=== PATIENT | male | born 1995 | race Caucasian/White ===

== ENCOUNTER → 2017-08-17 | Outpatient (CLI) | payer OTHER ==
[~2017-08-17] MED LIST: CYSTO-CONRAY II 17.2% 250ML VIAL (Q9958) As Ordered; LIDOCAINE 2% JELLY 30 ML As Ordered
== END ==
LOC: M RADPRO 14:10
DX: N32.89 Other specified disorders of bladder (principal); R31.9 Hematuria, unspecified
CPT/HCPCS: 51600

== ENCOUNTER 2017-09-14 15:11 | Emergency (ER) | payer OTHER ==
[2017-09-14 18:13] LABS: BASO # 0.1 10^3/uL (0.0-0.2); BASO % 0.7 % (0.0-1.0); EOS # 0.1 10^3/uL (0.0-0.50); EOS % 1.8 % (0.0-3.0); HEMATOCRIT 43.5 % (42.0-52.0); HEMOGLOBIN 14.6 g/dl (13.5-17.5); IMMATURE GRANULOCYTE % 0.1 % (0-3.0); LYMPH # 2.3 10^3/uL (1.5-6.5); LYMPH % 34.4 % (24.0-44.0); MEAN CORPUSCULAR HEMOGLOBIN 27.9 pg (27.0-33.0); MEAN CORPUSCULAR HGB CONC 33.6 g/dl (32.0-36.5); MEAN CORPUSCULAR VOLUME 83.2 fl (80.0-96.0); MONO # 0.4 10^3/uL (0.0-0.8); MONO % 6.5 % (0.0-5.0); NEUTROPHILS # 3.8 10^3/uL (1.8-7.7); NEUTROPHILS % 56.5 % (36.0-66.0); PLATELET COUNT, AUTOMATED 245 10^3/uL (150-450); RED BLOOD COUNT 5.23 10^6/uL (4.30-6.10); RED CELL DISTRIBUTION WIDTH 12.6 % (11.5-14.5); WHITE BLOOD COUNT 6.8 10^3/uL (4.0-10.0)
[2017-09-14 18:19] LABS: KETONE, URINE AUTO RFX NEGATIVE (NEGATIVE); LEUKOCYTE ESTERASE UR AUTO RFX NEGATIVE (NEGATIVE); MUCUS, URINE RFX SMALL (NEGATIVE); NITRITE, URINE AUTO RFX NEGATIVE (NEGATIVE); RBC, URINE AUTO RFX 22 /HPF (0-3); SPECIFIC GRAVITY UR AUTO RFX 1.024 (1.002-1.035); SQUAM EPITHELIAL CELL UR AURFX 0 /HPF (0-6); WBC, URINE AUTO RFX 2 /HPF (0-3)
[2017-09-14] MEDS: NS 1,000 ML IV (18:21)
[2017-09-14] MEDS: ONDANSETRON 4MG/2ML VIAL (J2405) IV (18:21)
[2017-09-14] MEDS: MORPHINE 4 MG/ML 1ML VIAL/SYRINGE (J2270) IV (18:21)
[2017-09-14 18:44] LABS: ALBUMIN 4.2 GM/DL (3.2-5.2); ALBUMIN/GLOBULIN RATIO 1.11 (1.00-1.93); ALKALINE PHOSPHATASE 93 U/L (45-117); ALT/SGPT 27 U/L (12-78); ANION GAP 5 MEQ/L (8-16); AST/SGOT 18 U/L (7-37); BILIRUBIN,DIRECT 0.2 MG/DL (0.0-0.2); BILIRUBIN,TOTAL 0.6 MG/DL (0.2-1.0); BLOOD UREA NITROGEN 11 MG/DL (7-18); CALCIUM LEVEL 9.3 MG/DL (8.5-10.1); CARBON DIOXIDE LEVEL 28 MEQ/L (21-32); CHLORIDE LEVEL 108 MEQ/L (98-107); CREATININE FOR GFR 1.09 MG/DL (0.70-1.30); GLOMERULAR FILTRATION RATE > 60.0 (>60); GLUCOSE, FASTING 87 MG/DL (70-100); POTASSIUM SERUM 3.7 MEQ/L (3.5-5.1); SODIUM LEVEL 141 MEQ/L (136-145)
[2017-09-14] MEDS ORDERED: ISOVUE-370 76% 100ML VIAL (Q9967) As Ordered (18:51)
== END 2017-09-14 21:59 | disposition home or self-care (01) ==
LOC: M ED 15:11
DX: R10.31 Right lower quadrant pain (principal); Z98.890 Other specified postprocedural states; Z88.0 Allergy status to penicillin; F17.210 Nicotine dependence, cigarettes, uncomplicated
CPT/HCPCS: J2270

== ENCOUNTER → 2017-12-22 | Outpatient (CLI) | payer OTHER | LOC: M PAIN 11:00 | DX: G57.91 Unspecified mononeuropathy of right lower limb (principal); R10.30 Lower abdominal pain, unspecified; F17.200 Nicotine dependence, unspecified, uncomplicated; Z88.0 Allergy status to penicillin | CPT/HCPCS: G0463 ==

== ENCOUNTER → 2018-01-28 | Outpatient (CLI) | payer OTHER ==
[~2018-01-28] MED LIST changes: +BUPIVACAINE HCL 0.25% 30 ML VIAL As Ordered; -CYSTO-CONRAY II 17.2% 250ML VIAL (Q9958) As Ordered; +ISOVUE-M 300 61% 15ML VIAL (Q9967) As Ordered; +LIDOCAINE 1% SDV INJ 30 ML VIAL As Ordered; -LIDOCAINE 2% JELLY 30 ML As Ordered; +TRIAMCINOLONE ACETONIDE SUSP 40 MG/ML VIAL (J3301) As Ordered; +diazePAM 5 MG TAB As Ordered
== END ==
LOC: M PAIN 13:00
DX: G57.91 Unspecified mononeuropathy of right lower limb (principal); F17.210 Nicotine dependence, cigarettes, uncomplicated; Z88.0 Allergy status to penicillin
CPT/HCPCS: J3301

== ENCOUNTER → 2018-02-18 | Outpatient (CLI) | payer OTHER | LOC: M PAIN 14:15 | DX: G57.91 Unspecified mononeuropathy of right lower limb (principal); M25.551 Pain in right hip; F17.210 Nicotine dependence, cigarettes, uncomplicated; Z79.899 Other long term (current) drug therapy; Z88.0 Allergy status to penicillin | CPT/HCPCS: G0463 ==

== ENCOUNTER 2018-02-19 13:08 | Emergency (ER) | payer OTHER ==
[2018-02-19] MEDS: MORPHINE 4 MG/ML 1ML VIAL/SYRINGE (J2270) IV (15:14)
[2018-02-19] MEDS: NS 1,000 ML IV (15:15)
[2018-02-19 15:21] LABS: BASO % 0.6 % (0.0-1.0); EOS # 0.1 10^3/uL (0.0-0.50); EOS % 1.1 % (0.0-3.0); HEMATOCRIT 43.7 % (42.0-52.0); IMMATURE GRANULOCYTE % 0.2 % (0-3.0); LYMPH % 37.3 % (24.0-44.0); MEAN CORPUSCULAR HGB CONC 34.3 g/dl (32.0-36.5); MEAN CORPUSCULAR VOLUME 84.5 fl (80.0-96.0); MONO # 0.3 10^3/uL (0.0-0.8); MONO % 6.3 % (0.0-5.0); NEUTROPHILS # 2.9 10^3/uL (1.8-7.7); NEUTROPHILS % 54.5 % (36.0-66.0); PLATELET COUNT, AUTOMATED 230 10^3/uL (150-450); RED BLOOD COUNT 5.17 10^6/uL (4.30-6.10); RED CELL DISTRIBUTION WIDTH 12.9 % (11.5-14.5); WHITE BLOOD COUNT 5.3 10^3/uL (4.0-10.0)
[2018-02-19 15:43] LABS: ALBUMIN 4.3 GM/DL (3.2-5.2); ALBUMIN/GLOBULIN RATIO 1.39 (1.00-1.93); ALKALINE PHOSPHATASE 58 U/L (45-117); ALT/SGPT 33 U/L (12-78); AMYLASE 80 U/L (25-115); ANION GAP 6 MEQ/L (8-16); AST/SGOT 20 U/L (7-37); BILIRUBIN,DIRECT 0.2 MG/DL (0.0-0.2); BLOOD UREA NITROGEN 15 MG/DL (7-18); CALCIUM LEVEL 9.4 MG/DL (8.5-10.1); CARBON DIOXIDE LEVEL 30 MEQ/L (21-32); CHLORIDE LEVEL 105 MEQ/L (98-107); CREATININE FOR GFR 1.07 MG/DL (0.70-1.30); GLOMERULAR FILTRATION RATE > 60.0 (>60); GLUCOSE, FASTING 88 MG/DL (70-100); LIPASE 136 U/L (73-393); POTASSIUM SERUM 4.2 MEQ/L (3.5-5.1); SODIUM LEVEL 141 MEQ/L (136-145); TOTAL PROTEIN 7.4 GM/DL (6.4-8.2)
[2018-02-19 15:52] LABS: LACTIC ACID SEPSIS PROTOCOL 0.8 MMOL/L (0.4-2.0)
[2018-02-19 16:56] LABS: AMORPHOUS SEDIMENT RFX MODERATE (NEGATIVE); KETONE, URINE AUTO RFX NEGATIVE (NEGATIVE); LEUKOCYTE ESTERASE UR AUTO RFX NEGATIVE (NEGATIVE); MUCUS, URINE RFX SMALL (NEGATIVE); NITRITE, URINE AUTO RFX NEGATIVE (NEGATIVE); RBC, URINE AUTO RFX 1 /HPF (0-3); SQUAM EPITHELIAL CELL UR AURFX 0 /HPF (0-6); WBC, URINE AUTO RFX 0 /HPF (0-3)
== END 2018-02-19 17:18 | disposition home or self-care (01) ==
LOC: M ED 13:08
DX: R10.31 Right lower quadrant pain (principal); K40.30 Unilateral inguinal hernia, with obstruction, without gangrene, not specified as recurrent; F17.200 Nicotine dependence, unspecified, uncomplicated; Z88.0 Allergy status to penicillin; Z79.899 Other long term (current) drug therapy
CPT/HCPCS: J2270

== ENCOUNTER → 2018-03-04 | Outpatient (CLI) | payer OTHER | LOC: M RAD 17:26 | DX: M25.551 Pain in right hip (principal) | CPT/HCPCS: 73721 ==

== ENCOUNTER → 2018-03-08 | Outpatient (CLI) | payer OTHER | LOC: M PAIN 15:45 | DX: G57.91 Unspecified mononeuropathy of right lower limb (principal); F17.210 Nicotine dependence, cigarettes, uncomplicated; Z88.0 Allergy status to penicillin; Z98.890 Other specified postprocedural states | CPT/HCPCS: G0463 ==

== ENCOUNTER → 2018-03-25 | Outpatient (CLI) | payer OTHER | LOC: M PAIN 15:15 | DX: G57.91 Unspecified mononeuropathy of right lower limb (principal); F17.210 Nicotine dependence, cigarettes, uncomplicated; Z79.899 Other long term (current) drug therapy; Z88.0 Allergy status to penicillin; Z98.890 Other specified postprocedural states | CPT/HCPCS: G0463 ==

== ENCOUNTER → 2018-07-05 | Outpatient (CLI) | payer OTHER ==
[~2018-07-05] MED LIST changes: -BUPIVACAINE HCL 0.25% 30 ML VIAL As Ordered; +GABA-843; -ISOVUE-M 300 61% 15ML VIAL (Q9967) As Ordered; -LIDOCAINE 1% SDV INJ 30 ML VIAL As Ordered; +NORCOTAB PO; -TRIAMCINOLONE ACETONIDE SUSP 40 MG/ML VIAL (J3301) As Ordered; -diazePAM 5 MG TAB As Ordered
--- NOTE | 2018-07-20 03:56 | ECWPNPC ---
PATIENT NAME: ROBERTO MCDONALD : 1995 GENDER: MALE VISIT DATE: 07/05/2018 DISCHARGE DATE: 07/05/18 1604 VISIT LOCKED DATE TIME: PHYSICIAN: CM GARCIA MD RESOURCE: CM GARCIA MD DISCLAIMER : THIS IS A VISIT SUMMARY EXTRACTED FROM THE [employer] CHART. IT IS NOT A COPY OF THE [employer] PROGRESS NOTE. KRYSTIAN
== END ==
LOC: M PAIN 14:15
PROVIDERS: ATTEND Anesthesiology
DX: G57.91 Unspecified mononeuropathy of right lower limb (principal); F17.210 Nicotine dependence, cigarettes, uncomplicated; Z79.899 Other long term (current) drug therapy; Z88.0 Allergy status to penicillin

== ENCOUNTER → 2018-08-31 | Outpatient (CLI) | payer OTHER ==
[~2018-08-31] MED LIST changes: +HYDR-3715 PO; +IBUP-1022 PO; -NORCOTAB PO
--- NOTE | 2018-09-12 23:31 | ECWPNPC ---
PATIENT NAME: ROBERTO MCDONALD : 1995 GENDER: MALE VISIT DATE: 08/31/2018 DISCHARGE DATE: 08/31/18 1505 VISIT LOCKED DATE TIME: PHYSICIAN: CM GARCIA MD RESOURCE: CM GARCIA MD REASON FOR APPOINTMENT 1. ABDOMINAL PAIN HISTORY OF PRESENT ILLNESS HISTORY OF PRESENT ILLNESS: PAIN THE PATIENT DESCRIBES THE PAIN... 23 YEAR OLD MALE PATIENT WITH A HISTORY OF CHRONIC ABDOMINAL PAIN. THE PATIENT DESCRIBES THE PAIN SHARP, STABBING, SHOOTING, AND CONTINUOUS WITH A PAIN SCORE OF 1-8/10 DEPENDING ON PHYSICAL ACTIVITY. THE PATIENT SAYS THE PAIN IS ON THE RIGHT SIDE OF HIS ABDOMEN. THE PATIENT HAS A HISTORY OF A RIGHT HERNIA REPAIR IN JULY 2017. THE PATIENT SAYS HE WAS USING GABAPENTIN AFTER THE PROCEDURE AND IT HELPED MANAGE HIS PAIN. THE PATIENT SAYS HIS RECENTLY STARTED WORKING AND DOING MORE PHYSICAL ACTIVITY, SO HIS PAIN HAS INCREASED. PATIENT DENIES UNEXPLAINABLE WEIGHT LOSS, FEVER, CHILLS, NEW CHANGES ON HIS URINARY OR BOWEL CONTROL. FALL RISK SCREENING: SCREENING :NO FALLS REPORTED IN THE LAST YEAR CURRENT MEDICATIONS TAKING GABAPENTIN 300 MG CAPSULE 1 CAPSULE ORALLY FOR PAIN BEFORE BEDTIME NOT-TAKING IBUPROFEN 800 MG TABLET 1 TABLET WITH FOOD OR MILK NEEDED ORALLY FOR PAIN EVERY 6 HOURS NEEDED MDD2 NOT-TAKING ACETAMINOPHEN 500 MG TABLET 1 TO 2 TABLET NEEDED ORALLY FOR PAIN EVERY 6 HRS MDD6 MEDICATION LIST REVIEWED AND RECONCILED WITH THE PATIENT PAST MEDICAL HISTORY RIGHT GROIN PAIN INGUINAL HERNIA LEFT SIDE ALLERGIES PENICILLIN (FOR ALLERGIES USE ONLY): UNKNOWN - ALLERGY SURGICAL HISTORY HERNIA REPAIR 07/2017 SURGERY R/T PERFORATED BLADDER 2018 LEFT INGUINAL HERNIA REPAIR 07/22/18 FAMILY HISTORY FATHER: ALIVE MOTHER: ALIVE 1 BROTHER(S) , 1 SISTER(S) - HEALTHY. SOCIAL HISTORY GENERAL: TOBACCO USE ARE YOU A:CURRENT EVERY DAY SMOKER VAPORYES EDUCATION LEVEL OF EDUCATION:FINISHED HIGH SCHOOL DIET: REGULAR. LANGUAGE LANGUAGES SPOKEN:THAI DOMESTIC VIOLENCE DO YOU FEEL SAFE IN YOUR ENVIRONMENT?YES RECREATIONAL DRUG USE DRUG USE?NO LEARNING BARRIERS / SPECIAL NEEDS CHANGE FROM LAST VISIT?NO BARRIERS TO LEARNING?NO HEARING IMPAIRED?NO VISION IMPAIRED?NO COGNITIVELY IMPAIRED?NO READINESS TO LEARN?YES LEARNING PREFERENCES?YES :DEMONSTRATION/VERBAL INSTRUCTION LEARNING CAPABILITIES PRESENT?YES EMOTIONAL BARRIERS?NO SPECIAL DEVICES?NO PAINT SPRAY INSPECTOR NEEDED?NO PAIN CLINIC PFS, CLERGY, PUBLIC HEALTH REFERRALS PFS REFERRAL NEEDED?NO CLERGY REFERRAL NEEDED?NO PUBLIC HEALTH REFERRAL NEEDED?NO WAS THE PROVIDER NOTIFIED OF ANY PERTINENT INFO? N/A HAS THE PATIENT BEEN EDUCATED REGARDING HIS/HER PLAN OF CARE?YES HAS THE PATIENT BEEN EDUCATED REGARDING PAIN, THE RISK FOR PAIN, THE IMPORTANCE OF EFFECTIVE PAIN MANAGEMENT, AND THE PAIN ASSESSMENT PROCESS?YES LATEX QUESTIONNAIRE LATEX ALLERGY : HAVE YOU EVER DEVELOPED ANY TYPE OF REACTION AFTER HANDLING LATEX PRODUCTS SUCH RUBBER GLOVES, CONDOMS, DIAPHRAGMS, BALLOONS, SOCKS, OR UNDERWEAR?NO LATEX ALLERGY : HAVE YOU EVER DEVELOPED ANY TYPE OF REACTION DURING OR AFTER DENTAL APPOINTMENT, VAGINAL/RECTAL EXAMINATION, SURGICAL PROCEDURE, OR ANY OTHER EXPOSURE?NO LATEX RISK : HAVE YOU EVER HAD ANY DIFFICULTY BREATHING OR HIVES AFTER EATING OR HANDLING ANY FRUITS, OR VEGETABLES; SUCH KIWI, BANANAS, STONE FRUITS, OR CHESTNUTSNO LATEX RISK : DO YOU HAVE A PREVIOUS PERSONAL HISTORY OF MORE THAN NINE SURGERIES, SPINA BIFIDA, OR REPEATED CATHERTIZATIONS? NO LATEX RISK : ARE YOU FREQUENTLY EXPOSED TO LATEX PRODUCTS IN YOUR OCCUPATION?NO DATE ASKED : 08/31/2018 CAFFEINE CAFFEINE USE?YES ONE MONSTER/DAY ADVANCE DIRECTIVE ADVANCE DIRECTIVE DISCUSSED WITH PATIENT:YES CHACE /UNSURE IF PAPERWORK DONE JEHOVAH'S WITNESS [id number] NONE MARITAL STATUS: . ALCOHOL SCREENING DID YOU HAVE A DRINK CONTAINING ALCOHOL IN THE PAST YEAR?NO POINTS0 INTERPRETATIONNEGATIVE OCCUPATION: [employer]. 08/31/18. HOSPITALIZATION/MAJOR DIAGNOSTIC PROCEDURE SURGERY COMPLICATED BY BLADDER PERFORATION 2018 HERNIA REPAIR 2018 REVIEW OF SYSTEMS REVIEWED BY: PROVIDER: CM GARCIA MD . CONSTITUTIONAL: ANY CHANGE IN YOUR MEDICAL CONDITION? NO . CHILLS NO . FEVER NO . INFECTION: DO YOU HAVE NEW INFECTIONS? NO . DO YOU HAVE HISTORY OF MRSA? NO . MUSCULOSKELETAL: ANY NEW PATTERNS OF PAIN OR NUMBNESS? NO . GASTROENTEROLOGY: ANY NEW CHANGE IN BOWEL CONTROL? NO . GENITOURINARY: ANY NEW CHANGE IN BLADDER CONTROL? NO . IS THERE A CHANCE YOU COULD BE ? NO . HEMATOLOGY/LYMPH: DO YOU TAKE ANY BLOOD THINNERS? (FOR EXAMPLE- COUMADIN, PLAVIX, AGGRENOX, PLATEL, PRADAXA, OR XARELTO) NO . WHEN WAS YOUR LAST DOSE? DATE: TIME: . NEUROLOGY: HAVE YOU FALLEN IN THE PAST 12 MONTHS? NO . ANY NEW EXTREMITY NUMBNESS OR WEAKNESS? NO . CARDIOLOGY: DO YOU HAVE A PACEMAKER OR DEFIBRILLATOR? NO . RESPIRATORY: HAVE YOU BEEN SICK IN THE PAST WEEK? NO . FEVER NO . FLU LIKE SYMPTOMS? NO . COUGH NO . INTEGUMENTARY: DO YOU HAVE ANY RASHES OR OPEN SORES? NO . ALLERGIC/IMMUNO: ARE YOU ALLERGIC TO IV DYE? NO . ANY NEW ALLERGIES? NO . PSYCHIATRIC: DO YOU HAVE THOUGHTS OF HURTING YOURSELF OR SOMEONE ELSE? NO . ARE YOU ABUSED, NEGLECTED, OR IN AN UNSAFE ENVIRONMENT? NO . ENDOCRINOLOGY: ARE YOU DIABETIC? NO . OTHER: DO YOU NEED ANY PRESCRIPTIONS? NO . IF YES, PLEASE LIST: ____ . ANY NEW PROBLEMS WITH YOUR MEDICATIONS? NO . WHEN DID YOU LAST EAT? ____ . WHEN DID YOU LAST DRINK? ____ . WHAT DID YOU LAST DRINK? ____ . NAME OF PERSON DRIVING YOU HOME? ____ . DO YOU HAVE ANY OTHER QUESTIONS OR CONCERNS NO . VITAL SIGNS WT 155 LBS, HT 72 IN, BMI 21.02 INDEX, BP 142/86 MM HG, HR 60 /MIN, RR 16 /MIN, TEMP 98.3 F, OXYGEN SAT % 99%, REVIEWED BY: SEKOU. EXAMINATION GENERAL EXAMINATION: PATIENT IS ALERT O X 3 AND COOPERATIVE. TENDERNESS ON THE SURGICAL SCAR OVER THE RIGHT ABDOMINAL AREA. TENDERNESS WITH PALPATION OVER THE RIGHT ABDOMINAL AREA, BUT NO REBOUND TENDERNESS. 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 MCDONALD'S PAIN MANAGEMENT CASE. DUE TO THE SCAR NEUROMA, I WOULD LIKE TO MOVE FORWARD WITH A SCAR NEUROMA INJECTION OVER THE RIGHT ABDOMINAL AREA. WE DISCUSSED THE BENEFITS, RISKS, AND ALTERNATIVES OF THE INJECTION AND THE PATIENT WOULD LIKE TO PROCEED. I WILL CONSIDER USING ULTRASOUND IN THE FUTURE DEPENDING ON THE RESULTS OF THE INJECTION. I WILL REFILL THE PATIENT'S GABAPENTIN AND INCREASE IT SLOWLY. I WOULD LIKE TO START THE PATIENT ON FLECTOR PATCH. I WILL ALSO REQUEST AN INTERFERENTIAL TENS UNIT. THE PATIENT WILL FOLLOW UP AFTER THE INJECTION. INSTRUCTIONS WERE GIVEN, QUESTIONS WERE ANSWERED, PATIENT REPORTS UNDERSTANDING AND AGREES WITH THE PLAN. I, LETHA BOWMAN, DOCUMENTED THE ABOVE INFORMATION ACTING A SCRIBE FOR DR. GARCIA. I HAVE REVIEWED THE ABOVE DOCUMENT, WRITTEN BY LETHA MAGALLANES AND I VERIFY THAT IT IS ACCURATE. . ILIOINGUINAL NEURALGIA OF RIGHT SIDE REFILL GABAPENTIN CAPSULE, 300 MG, 1 CAPSULE, ORALLY FOR PAIN, THREE TIMES DAILY, 30 DAYS, 90, REFILLS 1 REFILL IBUPROFEN TABLET, 800 MG, 1 TABLET WITH FOOD OR MILK NEEDED, ORALLY FOR PAIN, EVERY 6 HOURS NEEDED MDD3, 30 DAY(S), 75, REFILLS 1 OTHERS REFILL ACETAMINOPHEN TABLET, 500 MG, 1 TO 2 TABLET NEEDED, ORALLY FOR PAIN, EVERY 6 HRS MDD6, 30 DAYS, 150, REFILLS 1 START FLECTOR PATCH, 1.3 %, 1 PATCH TO SKIN, TRANSDERMAL, DAILY ( PUT IN AM AND REMOVE IN PM), 30 DAY(S), 30, REFILLS 1 PREVENTIVE MEDICINE PAIN CLINIC TEACHING: MEDICATIONS INFORMATION FOR FLECTOR PATCH AND GABAPENTIN PRINTED AND REVIEWED WITH PT.. PROCEDURE CODES FA211 ESTABILISHED PATIENT [facility] CHARGE [id number] CURRENT MEDS W/DOSAGES DOCUMENTED G8730 PAIN ASSESS POS TOOL F/U PLAN DOC DISPOSITION & COMMUNICATION FOLLOW UP 3 WEEKS ELECTRONICALLY SIGNED BY CM GARCIA MD, ON 09/12/2018 AT 07:37 PM EDT DISCLAIMER : THIS IS A VISIT SUMMARY EXTRACTED FROM THE [employer] CHART. IT IS NOT A COPY OF THE [employer] PROGRESS NOTE. KRYSTIAN
== END ==
LOC: M PAIN 12:15
PROVIDERS: ATTEND Anesthesiology
DX: D36.10 Benign neoplasm of peripheral nerves and autonomic nervous system, unspecified (principal); G57.91 Unspecified mononeuropathy of right lower limb; R10.9 Unspecified abdominal pain; G89.29 Other chronic pain; F17.290 Nicotine dependence, other tobacco product, uncomplicated; Z88.0 Allergy status to penicillin; Z79.899 Other long term (current) drug therapy

== ENCOUNTER 2018-09-03 18:09 | Emergency (ER) | payer OTHER ==
[~2018-09-03] VITALS: Ht 182.9 cm; Wt 69.9 kg
[~2018-09-03 18:09] MED LIST changes: -IBUP-1022 PO
[2018-09-03 18:10] VITALS: BP 132/95
[2018-09-03] MEDS ORDERED: PERCOCET 5MG/325MG TAB PO ONE (18:45)
[2018-09-03] MEDS ORDERED: IBUP-1022 PO (20:10)
--- NOTE | 2018-09-03 20:11 | REP ---
Bilateral inguinal ultrasound with and without Valsalva: History: Right inguinal pain. Question hernia. Comparison CT study is from September 14, 2017. Sonographic findings: Inguinal sonography is performed bilaterally. There is no evidence of inguinal hernia on either side with or without Valsalva. No abnormal fluid collection, mass, or cyst is seen. Fashion: Negative bilateral inguinal soft-tissue ultrasound. No evidence of hernia, abnormal fluid collection, or mass. Electronically Signed by Liban Crane MD 09/03/2018 08:34 P
== END 2018-09-03 20:19 | disposition home or self-care (01) ==
LOC: M ED 18:09
DX: S39.013A Strain of muscle, fascia and tendon of pelvis, initial encounter (principal); Y99.1 Military activity; Y92.9 Unspecified place or not applicable; Y93.9 Activity, unspecified; Z88.0 Allergy status to penicillin; Z79.891 Long term (current) use of opiate analgesic